=== PATIENT | female | born 1995 | race American Indian/Alaskan Native ===

== ENCOUNTER 2021-06-04 10:15 | Emergency (ER) | payer MEDICAID ==
[2021-06-04] MEDS ORDERED: Ondansetron 4 MG/2 ML SDV IVPUSH ONE (11:17)
[2021-06-04] MEDS ORDERED: Ketorolac 30 MG/ML SDV IVPUSH ONE (11:17)
[2021-06-04] MEDS ORDERED: Sodium Chloride 0.9% 1,000 ML IV ONE ×2 (11:17→12:11)
== END 2021-06-04 14:15 | disposition home or self-care (01) ==
LOC: FB.ED 10:15
DX: O99.281 Endocrine, nutritional and metabolic diseases complicating pregnancy, first trimester (principal); E86.0 Dehydration; R82.4 Acetonuria; Z20.822 Contact with and (suspected) exposure to COVID-19; Z3A.01 Less than 8 weeks gestation of pregnancy
CPT/HCPCS: 36415; 80053; 81001; 81025; 83735; 85025; 86140; 87086; 96374; 96375; 99284-25; J1885; J2405; J7030

== ENCOUNTER 2021-06-18 21:35 | Emergency (ER) | payer BC, MEDICAID ==
[2021-06-19] MEDS ORDERED: valACYclovir 1,000 MG Tab PO SCH (00:15)
== END 2021-06-19 00:25 | disposition home or self-care (01) ==
LOC: FB.ED 21:35
DX: R23.8 Other skin changes (principal); Z90.49 Acquired absence of other specified parts of digestive tract
CPT/HCPCS: 87255; 99283; A9270